=== PATIENT | male | born 1950 | race Caucasian/White ===

== ENCOUNTER 2024-11-12 15:20 | Outpatient (CLI) | payer MEDICARE, SELFPAY | END 2024-11-12 15:21 | disposition home or self-care (01) | PROVIDERS: Visit Provider Family Medicine | DX: R06.09 Other forms of dyspnea (principal); R07.89 Other chest pain; I25.10 Atherosclerotic heart disease of native coronary artery without angina pectoris | CPT/HCPCS: 80053; 80061 ==

== ENCOUNTER 2024-11-26 08:17 | Outpatient (CLI) | payer MEDICARE, SELFPAY ==
[2024-11-26 10:53] VITALS: BP 150/90; PULSE 73; RESP 18
--- NOTE | 2024-11-26 11:09 | W.PM.STED ---
Stress Test Note Date Date Seen: 11/26/24 Date of test: 11/26/24 Providers Primary care provider: Cezar Duron Stress test physician: Gómez Gill Stress Test Note Stress test ordered: Lexiscan Indication for test: Shortness of breath Stress test medicine: Lexiscan Results discussion: This very nice gentleman presents here for the above test after discussion the risks benefits and side effects he would like proceed cardiac stress test medical history form is reviewed entirely. Pretest EKG shows normal sinus rhythm, with the ventricular rate of 57, blood pressure 131/82, flipped T-waves are noted laterally, and inferiorly standard walking Lexiscan protocol is done. Test duration was 5 minutes, achieved a metabolic equivalent of 7.1 Mets with a maximum heart rate of 116, which is 92% of the maximum, he did not have any symptoms, review of the tracing showed no evidence of an acute dysrhythmia although there was lots artifact. No worsening of pre-existing EKG changes noted. Impression: Negative Lexiscan, both subjectively and objectively electrographicly Follow up suggested: Await, nuclear read, this will be read by both Cardiology and nuclear Medicine, clinical correlation with this will be needed, there were no complications, and patient left this testing facility in excellent condition.
== END 2024-11-26 10:55 | disposition home or self-care (01) ==
LOC: STRESS 08:19
PROVIDERS: PCP Family Medicine; Visit Provider Family Medicine
DX: R06.09 Other forms of dyspnea (principal)
CPT/HCPCS: 78452; 93016; 93017; A9500

== ENCOUNTER 2024-12-09 16:18 | Outpatient (CLI) | payer MEDICARE, SELFPAY ==
[2024-12-09 21:52] LABS: Basophils Absolute Auto 0.05 K/uL (0.00-0.30); Basophils Percent Auto 0.9 % (0.0-3.0); Eosinophils Absolute Auto 0.09 K/uL (0.00-0.50); Eosinophils Percent Auto 1.6 % (0.0-7.0); Hematocrit 45.4 % (37.0-53.0); Hemoglobin* 15.2 gm/dL (13.5-17.5); Lymphocytes Absolute Auto 2.04 K/uL (0.90-2.90); Lymphocytes Percent Auto 35.2 % (20-44); Mean Corpuscular HGB Conc 34 gm/dL (32-36); Mean Corpuscular Hemoglobin 32 pg (26-34); Mean Corpuscular Volume 94 fL (80-100); Monocytes Percent Auto 7.1 % (0.0-11.0); Neutrophils Absolute Auto 3.21 K/uL (1.7-7.0); Neutrophils Percent Auto 55.2 % (42.0-72.0); Platelet Count* 212 K/uL (140-440); RDW Coefficient of Variation % 11.9 % (11.5-15.5); Red Blood Count 4.83 m/uL (4.30-5.90)
[2024-12-09 21:55] LABS: Slide Review Reflex No
[2024-12-09 22:06] LABS: Chloride* 101 mmol/L (96-114); Sodium* 138 mmol/L (135-149)
[2024-12-09 22:09] LABS: Alanine Aminotransferase* 30 U/L (4-50); Anion Gap 8 mEq/L (7-15); Aspartate Amino Transferase* 34 U/L (12-35); Blood Urea Nitrogen* 16 mg/dL (7-30); Carbon Dioxide* 29 mmol/L (20-32); Cholesterol* 226 mg/dL (90-199); Creatinine* 1.1 mg/dL (0.5-1.5); Estimated Glomerular Filt Rate 71 ml/min; Glucose* 106 mg/dL (60-115); Triglycerides* 381 mg/dL (40-149)
[2024-12-09 22:10] LABS: Calcium* 9.6 mg/dL (8.4-10.6); HDL Cholesterol* 46 mg/dL (>=40); LDL Cholesterol Calculated 104 mg/dL (<100)
== END 2024-12-09 16:19 | disposition home or self-care (01) ==
LOC: NPINS 16:19
PROVIDERS: Internal Medicine Cardiovascular Disease; PCP Family Medicine; Visit Provider Nurse Practitioner
DX: R94.39 Abnormal result of other cardiovascular function study (principal); E78.01 Familial hypercholesterolemia; R06.02 Shortness of breath
CPT/HCPCS: 80048; 80061; 84450; 84460; 85025

== ENCOUNTER 2025-01-17 08:35 | Outpatient (CLI) | payer MEDICARE, SELFPAY ==
[2025-01-17] MEDS: PERFLUTREN LIPID MICROSPHERES 2 ML VIAL IVP (11:13)
== END 2025-01-17 08:36 | disposition home or self-care (01) ==
LOC: RAD 08:37
PROVIDERS: PCP Family Medicine; Visit Provider Family Medicine
DX: R06.09 Other forms of dyspnea (principal); I34.0 Nonrheumatic mitral (valve) insufficiency
CPT/HCPCS: 93306; Q9957